=== PATIENT | male | born 1995 | race Caucasian/White ===

== ENCOUNTER 2020-09-09 13:08 | Emergency (ER) | payer SELFPAY ==
[2020-09-09] MEDS ORDERED: NA CHLORIDE 0.9% 1,000 ML ONE ×2 (14:19→17:48)
[2020-09-09] MEDS ORDERED: ONDANSETRON 4 MG/2 ML VIAL ONE (14:19)
[2020-09-09 14:31] LABS: Absolute Lymphocytes (CBC) 1.5 K/uL (0.7-4.9); Basophils % 0.4 % (0-1.3); Hematocrit 47.1 % (39.6-49.0); Lymphocytes % 18.3 % (15.3-44.8); MPV 9.4 fL (7.6-11.3); RBC Red Blood Cell Count 5.34 M/uL (4.33-5.43)
[2020-09-09 14:42] LABS: ALT/SGPT 39 U/L (12-78); AST/SGOT 28 U/L (15-37); Albumin 4.2 g/dL (3.4-5.0); Alkaline Phosphatase 65 U/L (45-117); BUN Blood Urea Nitrogen 13 mg/dL (7-18); Bicarbonate 24 mmol/L (21-32); Bilirubin Direct 0.1 mg/dL (0-0.2); Bilirubin Total 0.5 mg/dL (0.2-1.0); Glucose Level 101 mg/dL (74-106); Lipase 69 U/L (73-393); Potassium 4.5 mmol/L (3.5-5.1); Protein, Total 7.9 g/dL (6.4-8.2); Sodium Level 139 mmol/L (136-145)
--- NOTE | 2020-09-09 14:57 | RAD REPORT ---
EXAM DESCRIPTION: CT - Abdomen Pelvis W Contrast - 09/09/2020 2:35 pm CLINICAL HISTORY: Abdominal pain COMPARISON: none. TECHNIQUE: Computed axial tomography of the abdomen pelvis was obtained. 100 cc Isovue-300 was admin istered intravenously. Oral contrast was not requested which limits evaluation of bowel. All CT scans are performed using dose optimization technique as appropriate and may include automated exposure control or mA/KV adjustment according to patient size. FINDINGS: The liver, spleen, pancreas, adrenal and kidneys appear unremarkable. There is no evidence of diverticulitis. An abnormal appendix is not visualized. Small umbilical hernia IMPRESSION: No acute abnormality is displayed.
--- NOTE | 2020-09-09 15:23 | RAD REPORT ---
EXAM DESCRIPTION: Clarisse Single View09/09/2020 2:55 pm CLINICAL HISTORY: Shortness of breath COMPARISON: none FINDINGS: The lungs appear clear of acute infiltrate. The heart is normal size IMPRESSION: No acute abnormalities displayed
[2020-09-09 17:07] LABS: SARS-COV-2 RT PCR NEGATIVE (NEGATIVE)
--- NOTE | 2020-09-09 17:13 | ER ---
Nurse's Notes [facility] Name: Marivel Blanton Age: 25 yrs Sex: Male : 1995 Arrival Date: 09/09/2020 Time: 13:11 Bed 8 Private MD: Diagnosis: Constipation;Unspecified abdominal pain;Dehydration Presentation: 09/09 13:29 Chief complaint: Patient states: abdominal pain x 3 - 4 days, N/V/ no appetite, ca1 constipation. 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 Coronavirus screen: Client denies travel out of the [place] in the last 14 days. nausea, vomiting. Client presents with at least one sign or symptom that may indicate coronavirus-19. Standard/surgical mask placed on the client. Provider contacted for isolation considerations. Ebola Screen: Patient negative for fever greater than or equal to 101.5 degrees Fahrenheit, and additional compatible Ebola Virus Disease symptoms Patient denies exposure to infectious person. Patient denies travel to an Ebola-affected area in the 21 days before illness onset. No symptoms or risks identified at this time. Initial Sepsis Screen: Does the patient meet any 2 criteria? No. Patient's initial sepsis screen is negative. Does the patient have a suspected source of infection? No. Patient's initial sepsis screen is negative. Risk Assessment: Do you want to hurt yourself or someone else? Patient reports no desire to harm self or others. Onset of symptoms was September 09, 2020. 13:29 Method Of Arrival: Ambulatory ca1 13:29 Acuity: JANINA 3 ca1 Historical: - Allergies: 13:31 No Known Allergies; ca1 - Home Meds: 13:31 None [Active]; ca1 - PMHx: 13:31 None; ca1 - PSHx: 13:31 None; ca1 - Immunization history:: Client reports having NOT received the Covid vaccine. Flu vaccine is not up to date. - Social history:: Smoking status: Patient reports the use of cigarette tobacco products, smokes one-half pack cigarettes per day. Screenin:03 Abuse screen: Denies threats or abuse. Nutritional screening: No deficits noted. jd3 Tuberculosis screening: No symptoms or risk factors identified. Fall Risk Ambulatory Aid- None/Bed Rest/Nurse Assist (0 pts). Gait- Normal/Bed Rest/Wheelchair (0 pts) Mental Status- Oriented to own ability (0 pts). Total Kerns Fall Scale indicates No Risk (0-24 pts). Assessment: 14:00 General: Appears in no apparent distress. uncomfortable, Behavior is calm, cooperative, jd3 appropriate for age. Pain: Complains of pain in abdomen Quality of pain is described as aching, crampy. Neuro: Level of Consciousness is awake, alert, obeys commands, Oriented to person, place, time, situation. Cardiovascular: Capillary refill < 3 seconds Patient's skin is warm and dry. Respiratory: Airway is patent Respiratory effort is even, unlabored, Respiratory pattern is regular, symmetrical, Denies cough, shortness of breath. GI: Abdomen is flat, non-distended, Abd is soft and non tender X 4 quads. Reports constipation, nausea. : No signs and/or symptoms were reported regarding the genitourinary system. EENT: No signs and/or symptoms were reported regarding the EENT system. Derm: Skin is intact, Skin is dry, Skin is normal, Skin temperature is warm. Musculoskeletal: Circulation, motion, and sensation intact. Range of motion: intact in all extremities. 15:03 Reassessment: Patient appears in no apparent distress at this time. No changes from jd3 previously documented assessment. Patient and/or family updated on plan of care and expected duration. Pain level reassessed. Patient is alert, oriented x 3, equal unlabored respirations, skin warm/dry/pink. 16:05 Reassessment: Patient appears in no apparent distress at this time. Patient and/or jd3 family updated on plan of care and expected duration. Pain level reassessed. Patient is alert, oriented x 3, equal unlabored respirations, skin warm/dry/pink. Patient states feeling better. 17:38 Reassessment: Patient appears in no apparent distress at this time. Patient and/or jd3 family updated on plan of care and expected duration. Pain level reassessed. Patient is alert, oriented x 3, equal unlabored respirations, skin warm/dry/pink. discharge pending fluid infusion. 18:58 Reassessment: Patient appears in no apparent distress at this time. Patient and/or jd3 family updated on plan of care and expected duration. Pain level reassessed. Patient is alert, oriented x 3, equal unlabored respirations, skin warm/dry/pink. pt reported understanding of discharge instructions, even and steady gait upon discharge. Patient states feeling better. Vital Signs: 13:29 BP 121 / 73; Pulse 76; Resp 16 S; Temp 97.6(TE); Pulse Ox 99% on R/A; Weight 90.72 kg ca1 (M); Height 5 ft. 7 in. (170.18 cm) (R); Pain 5/10; 14:58 Pulse 87; Resp 17 S; Pulse Ox 98% on R/A; jd3 16:05 Pulse 65; Resp 16 S; Pulse Ox 96% on R/A; jd3 17:38 Pulse 76; Resp 17 S; Pulse Ox 97% on R/A; jd3 19:06 Pulse 75; Resp 16 S; Pulse Ox 98% on R/A; jd3 13:29 Body Mass Index 31.32 (90.72 kg, 170.18 cm) ca1 ED Course: 13:11 Patient arrived in ED. ds1 13:31 Triage completed. ca1 13:31 Arm band placed on right wrist. ca1 13:34 Yayo Kimball RN is Primary Nurse. jd3 13:47 Tristen Flores NP is PHCP. pm1 13:47 Murray Argueta MD is Attending Physician. pm1 14:05 Inserted saline lock: 20 gauge in right antecubital area, using aseptic technique. ds4 Blood collected. 14:35 CT Abd/Pelvis - IV Contrast Only In Process Unspecified. EDMS 14:55 Chest Single View XRAY In Process Unspecified. EDMS 15:03 Patient has correct armband on for positive identification. Bed in low position. Call jd3 light in reach. Side rails up X 1. Pulse ox on. NIBP on. 19:05 No provider procedures requiring assistance completed. IV discontinued, intact, jd3 bleeding controlled, No redness/swelling at site. Pressure dressing applied. Administered Medications: 14:10 Drug: NS 0.9% 1000 ml Route: IV; Rate: 1000 ml; Site: right antecubital; jd3 15:15 Follow up: Response: No adverse reaction; IV Status: Completed infusion; IV Intake: jd3 1000ml 14:10 Drug: Zofran (Ondansetron) 4 mg Route: IVP; Site: right antecubital; jd3 15:10 Follow up: Response: No adverse reaction jd3 17:31 Drug: NS 0.9% 1000 ml Route: IV; Rate: 1000 ml; Site: right antecubital; jd3 19:07 Follow up: Response: No adverse reaction; IV Status: Completed infusion; IV Intake: jd3 1000ml Intake: 15:15 IV: 1000ml; Total: 1000ml. jd3 19:07 IV: 1000ml; Total: 2000ml. jd3 Outcome: 17:12 Discharge ordered by MD. pm1 19:05 Discharged to home ambulatory, with family. jd3 19:05 Condition: stable 19:05 Discharge instructions given to patient, Instructed on discharge instructions, follow up and referral plans. medication usage, Demonstrated understanding of instructions, follow-up care, medications, Prescriptions given X 3. 19:07 Patient left the ED. jd3 Signatures: Dispatcher [employer] EDMS FelicianoKenzie bernal ds1 Allen Reagan ds4 Tristen Flores, PROPERTY WORKER PROPERTY WORKER pm1 Yayo Kimball RN RN jd3 Raven Barillas RN RN ca1 Corrections: (The following items were deleted from the chart) 17:40 17:40 Pulse 60bpm; Resp 17bpm; Spontaneous; Pulse Ox 97% RA; jd3 jd3 19:05 18:58 Reassessment: Patient appears in no apparent distress at this time. No changes jd3 from previously documented assessment. Patient and/or family updated on plan of care and expected duration. Pain level reassessed. Patient is alert, oriented x 3, equal unlabored respirations, skin warm/dry/pink. Patient states feeling better. jd3
--- NOTE | 2020-09-09 17:13 | EDPHYS ---
Physician Documentation [facility] Name: Marivel Blanton Age: 25 yrs Sex: Male : 1995 Arrival Date: 09/09/2020 Time: 13:11 Bed 8 Private MD: TAMIKO Physician Murray Argueta HPI: 09/09 14:27 This 25 yrs old Male presents to ER via Ambulatory with complaints of pm1 Abdominal Pain. 14:27 The patient presents with abdominal pain in the periumbilical area. Onset: The pm1 symptoms/episode began/occurred 4 day(s) ago. The symptoms do not radiate. Associated signs and symptoms: Pertinent positives: nausea and vomiting, constipation, shortness of breath, Pertinent negatives: chest pain, dysuria, fever, headache. Associated signs and symptoms: Pertinent positives: decreased appetite and decreased sense of taste. The symptoms are described as achy. Modifying factors: The symptoms are alleviated by nothing, the symptoms are aggravated by nothing. Severity of pain: in the emergency department the pain has improved. The patient has not experienced similar symptoms in the past. The patient has not recently seen a physician. 14:27 Patient is concerned that he might have covid after going to a wedding recently due to pm1 his recent change in taste. Historical: - Allergies: 13:31 No Known Allergies; ca1 - Home Meds: 13:31 None [Active]; ca1 - PMHx: 13:31 None; ca1 - PSHx: 13:31 None; ca1 - Immunization history:: Client reports having NOT received the Covid vaccine. Flu vaccine is not up to date. - Social history:: Smoking status: Patient reports the use of cigarette tobacco products, smokes one-half pack cigarettes per day. ROS: 14:27 Eyes: Negative for injury, pain, redness, and discharge. pm1 14:27 ENT: Negative for injury, pain, and discharge, Neck: Negative for injury, pain, and swelling, Cardiovascular: Negative for chest pain, palpitations, and edema. 14:27 Back: Negative for injury and pain, : Negative for injury, bleeding, discharge, and swelling, MS/Extremity: Negative for injury and deformity, Skin: Negative for injury, rash, and discoloration. 14:27 Constitutional: Positive for poor PO intake, Negative for fever. 14:27 Respiratory: Positive for shortness of breath, Negative for cough, sputum production, wheezing. 14:27 Abdomen/GI: Positive for abdominal pain, nausea and vomiting, constipation, Negative for diarrhea. 14:27 Neuro: Positive for change in sense of taste, Negative for headache, numbness, tingling. Exam: 14:27 Constitutional: This is a well developed, well nourished patient who is awake, alert, pm1 and in no acute distress. Head/Face: Normocephalic, atraumatic. 14:27 Back: No spinal tenderness. No costovertebral tenderness. Full range of motion. Skin: Warm, dry with normal turgor. Normal color with no rashes, no lesions, and no evidence of cellulitis. MS/ Extremity: Pulses equal, no cyanosis. Neurovascular intact. Full, normal range of motion. 14:27 Eyes: Exam is negative for acute changes, Extraocular movements: no acute changes, Conjunctiva: normal, Sclera: no appreciated abnormality, Lids and lashes: appear normal. 14:27 ENT: Mouth: Lips: normal, Oral mucosa: normal, pink and intact, moist, Posterior pharynx: is normal, airway is patent, no erythema, no exudate, no peritonsilar mass, no pooling of secretions, no swelling. 14:27 Cardiovascular: Exam negative for acute changes, Rate: normal, Rhythm: regular, Pulses: no pulse deficits are appreciated. 14:27 Respiratory: Exam negative for acute changes, respiratory distress, shortness of breath. 14:27 Abdomen/GI: Inspection: abdomen appears normal, Palpation: soft, in all quadrants, nontender, in all quadrants. 14:27 Neuro: Exam negative for acute changes, Orientation: is normal, Mentation: is normal, Motor: is normal, moves all fours, Sensation: is normal, no obvious gross deficits. Vital Signs: 13:29 BP 121 / 73; Pulse 76; Resp 16 S; Temp 97.6(TE); Pulse Ox 99% on R/A; Weight 90.72 kg ca1 (M); Height 5 ft. 7 in. (170.18 cm) (R); Pain 5/10; 14:58 Pulse 87; Resp 17 S; Pulse Ox 98% on R/A; jd3 16:05 Pulse 65; Resp 16 S; Pulse Ox 96% on R/A; jd3 17:38 Pulse 76; Resp 17 S; Pulse Ox 97% on R/A; jd3 19:06 Pulse 75; Resp 16 S; Pulse Ox 98% on R/A; jd3 13:29 Body Mass Index 31.32 (90.72 kg, 170.18 cm) ca1 MDM: 13:53 Patient medically screened. 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 He does not want a positive drug test for any reason. 14:33 Data reviewed: vital signs. Data interpreted: Pulse oximetry: on room air is 99 %. pm1 Interpretation: normal. 17:12 ED course: Patient felt better after getting IV fluids and requested another bag of pm1 fluids prior to going home. 09/09 13:56 Order name: Basic Metabolic Panel; Complete Time: 14:50 pm1 09/09 13:56 Order name: CBC with Diff; Complete Time: 14:50 pm1 09/09 13:56 Order name: Hepatic Function; Complete Time: 14:50 pm1 09/09 13:56 Order name: Lipase; Complete Time: 14:50 pm1 09/09 13:56 Order name: IV Saline Lock; Complete Time: 14:07 pm1 09/09 13:56 Order name: Labs collected and sent; Complete Time: 14:07 pm1 09/09 13:56 Order name: CT Abd/Pelvis - IV Contrast Only; Complete Time: 14:59 pm1 09/09 14:29 Order name: Chest Single View XRAY; Complete Time: 15:27 pm1 09/09 17:07 Order name: COVID-19/FLU A+B; Complete Time: 17:08 EDMS Administered Medications: 14:10 Drug: NS 0.9% 1000 ml Route: IV; Rate: 1000 ml; Site: right antecubital; jd3 15:15 Follow up: Response: No adverse reaction; IV Status: Completed infusion; IV Intake: jd3 1000ml 14:10 Drug: Zofran (Ondansetron) 4 mg Route: IVP; Site: right antecubital; jd3 15:10 Follow up: Response: No adverse reaction jd3 17:31 Drug: NS 0.9% 1000 ml Route: IV; Rate: 1000 ml; Site: right antecubital; jd3 19:07 Follow up: Response: No adverse reaction; IV Status: Completed infusion; IV Intake: jd3 1000ml Disposition: 09/09/20 17:13 Discharged to Home. Impression: Constipation, Unspecified abdominal pain, Dehydration. - Condition is Stable. - Discharge Instructions: Abdominal Pain, Adult, Constipation, Adult, Dehydration, Adult, Rehydration, Adult. - Prescriptions for Miralax 17 gram/dose Oral - take 1 packet by ORAL route once daily As needed dilute powder in 8 ounces of water or juice; 7 packet. Zofran ODT 4 mg Oral tablet,disintegrating - place 1 tablet by TRANSLINGUAL route every 8 hours As needed; 12 tablet. Bentyl 20 mg Oral Tablet - take 1 tablet by ORAL route every 6 hours As needed; 20 tablet. - Medication Reconciliation Form, Thank You Letter, Antibiotic Education, Prescription Opioid Use, Work release form form. - Follow up: Emergency Department; When: As needed; Reason: Worsening of condition. Follow up: Private Physician; When: 2 - 3 days; Reason: Recheck today's complaints, Continuance of care, Re-evaluation by your physician. - Problem is new. - Symptoms have improved. Addendum: 09/11/2020 07:16 Co-signature as Attending Physician, Murray Argueta MD I agree with the assessment and c almeida plan of care. Signatures: Dispatcher [employer] Murray Montoya MD MD cha Marinas, Patrick, [place] TOOL TURRET LATHE SET UP OPERATOR pm1 Yayo Kimball, DEANDRA RN jd3 Raven Barillas RN RN ca1 Corrections: (The following items were deleted from the chart) 09/09 16:10 13:57 CORONAVIR[facility] 13:57 Influenza Screen (A \T\ B)+BA.LAB.BRZ ordered. [facility] EDMS 17:13 17:13 09/09/2020 17:13 Discharged to Home. Impression: Constipation; Unspecified pm1 abdominal pain. Condition is Stable. Discharge Instructions: Constipation, Adult. Prescriptions for Miralax 17 gram/dose Oral - take 1 packet by ORAL route once daily As needed dilute powder in 8 ounces of water or juice; 7 packet. and Forms are Medication Reconciliation Form, Thank You Letter, Antibiotic Education, Prescription Opioid Use. Follow up: Emergency Department; When: As needed; Reason: Worsening of condition. Follow up: Private Physician; When: 2 - 3 days; Reason: Recheck today's complaints, Continuance of care, Re-evaluation by your physician. Problem is new. Symptoms have improved. pm1 19:07 17:13 09/09/2020 17:13 Discharged to Home. Impression: Constipation; Unspecified jd3 abdominal pain; Dehydration. Condition is Stable. Discharge Instructions: Constipation, Adult. Prescriptions for Miralax 17 gram/dose Oral - take 1 packet by ORAL route once daily As needed dilute powder in 8 ounces of water or juice; 7 packet. and Forms are Medication Reconciliation Form, Thank You Letter, Antibiotic Education, Prescription Opioid Use. Follow up: Emergency Department; When: As needed; Reason: Worsening of condition. Follow up: Private Physician; When: 2 - 3 days; Reason: Recheck today's complaints, Continuance of care, Re-evaluation by your physician. Problem is new. Symptoms have improved. pm1
[2020-09-09 19:22] VITALS: BP 121/73; TEMP 97.6
[2020-09-09 19:28] VITALS: O2SAT 98
== END 2020-09-09 19:07 | disposition home or self-care (01) ==
LOC: ER 13:08
DX: K59.00 Constipation, unspecified (principal); Z20.822 Contact with and (suspected) exposure to COVID-19; E86.0 Dehydration; F17.210 Nicotine dependence, cigarettes, uncomplicated
CPT/HCPCS: 0240U; 36415; 71045; 74177; 80048; 80076; 82565; 83690; 85025; 96361; 96374; 99284; J2405; J7030; Q9967